=== PATIENT | female | born 1945 | race Caucasian/White ===

== ENCOUNTER 2020-01-21 00:29 | Emergency (ER) | payer MEDICARE, OTHER ==
[~2020-01-21] VITALS: Ht 154.9 cm; Wt 62.0 kg
[2020-01-21 01:44] VITALS: BP 178/98
== END 2020-01-21 02:32 | disposition home or self-care (01) ==
LOC: ER 00:29
DX: I10 Essential (primary) hypertension (principal)
CPT/HCPCS: 99281